=== PATIENT | female | born 1960 | race Caucasian/White ===

== ENCOUNTER 2023-02-01 10:31 | Outpatient (CLI) | payer BC | END 2023-02-01 10:32 | disposition home or self-care (01) | LOC: CSHMAMMO 10:31 | PROVIDERS: ATTEND Obstetrics & Gynecology | DX: Z12.31 Encounter for screening mammogram for malignant neoplasm of breast (principal) | CPT/HCPCS: 77063; 77067 ==

== ENCOUNTER 2024-02-09 15:27 | Outpatient (CLI) | payer BC | END 2024-02-09 15:28 | disposition home or self-care (01) | LOC: CSHMAMMO 15:27 | PROVIDERS: ATTEND Obstetrics & Gynecology | DX: Z12.31 Encounter for screening mammogram for malignant neoplasm of breast (principal); Z98.890 Other specified postprocedural states | CPT/HCPCS: 77063; 77067 ==

== ENCOUNTER 2024-02-09 16:01 | Outpatient (CLI) | payer BC | END 2024-02-09 16:02 | disposition home or self-care (01) | LOC: CSHRAD 16:01 | PROVIDERS: ATTEND Family Medicine | DX: M54.2 Cervicalgia (principal); M47.812 Spondylosis without myelopathy or radiculopathy, cervical region | CPT/HCPCS: 72040 ==